=== PATIENT | male | born 1990 | race African-American/Black ===

== ENCOUNTER 2017-06-22 11:56 | Emergency (ER) | payer MEDICARE, MEDICAID ==
[~2017-06-22] VITALS: Ht 167.6 cm; Wt 66.0 kg
[2017-06-22 12:45] VITALS: BP 120/66
[2017-06-22 16:04] LABS: BASOPHILS % 0.9 % (0.0-2.0); EOSINOPHILS % 3.2 % (0.0-5.0); HEMATOCRIT. 40.9 % (42.0-52.0); HEMOGLOBIN. 14.3 g/dL (14.0-18.0); LYMPHOCYTES % 31.7 % (20.0-50.0); MEAN CORPUSCULAR HEMOGLOBIN 31.5 pg (28.0-32.0); MEAN CORPUSCULAR VOLUME 90.4 fL (80.0-94.0); MEAN PLATELET VOLUME 7.5 fl (7.4-10.4); MONOCYTES % 6.4 % (2.0-8.0); NEUTROPHILS % 57.8 % (40.0-76.0); PLATELET 338 x1000/uL (130-400); RED BLOOD CELL COUNT 4.52 mill/uL (4.7-6.1); RED CELL DISTRIBUTION WIDTH 13.2 % (11.6-14.6)
== END 2017-06-22 17:04 | disposition home or self-care (01) ==
LOC: ER 13:09
DX: K64.8 Other hemorrhoids (principal); Z88.6 Allergy status to analgesic agent
CPT/HCPCS: 36415; 85025; 99283

== ENCOUNTER 2023-04-11 10:32 | Emergency (ER) | payer MEDICAID ==
[~2023-04-11] VITALS: Ht 172.7 cm; Wt 68.0 kg
[2023-04-11 10:42] VITALS: BP 120/74; PULSE 93; RESP 18; TEMP 97.9; O2SAT 98
[2023-04-11] MEDS ORDERED: LIDOCAINE HCL/PF 1% 10 MG/ML 5ML VIAL INFIL ONE (11:30)
[2023-04-11] MEDS ORDERED: CEFTRIAXONE SODIUM 500 MG/VIAL IM ONE (11:30)
[2023-04-11 11:54] LABS: CLARITY URINE CLEAR (CLEAR); COLOR URINE YELLOW (YELLOW); GLUCOSE URINE NEGATIVE (NEGATIVE); KETONES URINE NEGATIVE (NEGATIVE); LEUKOCYTE ESTERASE URINE 2+ (NEGATIVE); NITRITE URINE NEGATIVE (NEGATIVE); OCCULT BLOOD URINE NEGATIVE (NEGATIVE); PROTEIN URINE NEGATIVE (NEGATIVE); SPECIFIC GRAVITY URINE 1.022 (1.005-1.030)
[2023-04-11] MEDS ORDERED: DOXY100T2 MT (12:05)
[2023-04-11 12:07] LABS: MUCUS URINE 2+ /lpf (NONE/TRACE); SQUAMOUS EPITHELIAL CELL URINE RARE /lpf (RARE/1+)
[2023-04-11 12:08] LABS: WBC URINE TNTC /hpf (0-2)
[2023-04-11 12:09] LABS: RBC URINE NONE SEEN /hpf (0-2)
[2023-04-11 12:10] LABS: BACTERIA URINE 1+
[2023-04-14 04:11] LABS: CHLAMYDIA TRACHOMATIS NAA Positive (Negative); NEISSERIA GONORRHOEAE NAA Negative (Negative)
== END 2023-04-11 12:44 | disposition home or self-care (01) ==
LOC: ER 10:32
DX: R30.0 Dysuria (principal); Z88.6 Allergy status to analgesic agent
CPT/HCPCS: 99283; 87491; 87591; 81003; 87086; 96372; J0696; J3490

== ENCOUNTER 2023-05-23 08:32 | Emergency (ER) | payer OTHER ==
[~2023-05-23] VITALS: Ht 162.6 cm; Wt 59.0 kg
[~2023-05-23 08:32] MED LIST: DOXY100T2 MT
[2023-05-23 08:35] VITALS: O2SAT 99
[2023-05-23] MEDS ORDERED: DOXYCYCLINE HYCLATE 100MG CAPSULE PO ONE (08:45)
[2023-05-23] MEDS ORDERED: CEFTRIAXONE SODIUM 500 MG/VIAL IM ONE (08:45)
[2023-05-23 09:25] LABS: CLARITY URINE CLEAR (CLEAR); COLOR URINE YELLOW (YELLOW); GLUCOSE URINE NEGATIVE (NEGATIVE); KETONES URINE NEGATIVE (NEGATIVE); LEUKOCYTE ESTERASE URINE NEGATIVE (NEGATIVE); NITRITE URINE NEGATIVE (NEGATIVE); OCCULT BLOOD URINE NEGATIVE (NEGATIVE); PH URINE 6.5 (4.5-8.0); PROTEIN URINE NEGATIVE (NEGATIVE); SPECIFIC GRAVITY URINE 1.024 (1.005-1.030)
[2023-05-23] MEDS ORDERED: DOXY100T2 MT (09:27)
[2023-05-23 09:34] VITALS: BP 112/80; PULSE 80; RESP 18; TEMP 98.7
[2023-05-25 04:11] LABS: CHLAMYDIA TRACHOMATIS NAA Positive (Negative); NEISSERIA GONORRHOEAE NAA Negative (Negative)
== END 2023-05-23 09:35 | disposition home or self-care (01) ==
LOC: ER 08:32
DX: R30.0 Dysuria (principal); R36.9 Urethral discharge, unspecified; M19.90 Unspecified osteoarthritis, unspecified site; Z88.6 Allergy status to analgesic agent
CPT/HCPCS: 99283; 87491; 87591; 81003; 96372; J0696

== ENCOUNTER 2023-07-27 09:03 | Emergency (ER) | payer OTHER ==
[~2023-07-27] VITALS: Ht 172.7 cm; Wt 64.0 kg
[2023-07-27 09:12] VITALS: O2SAT 97
[2023-07-27] MEDS ORDERED: DOXY100C5 MT (09:29)
[2023-07-27] MEDS: DOXYCYCLINE HYCLATE 100MG CAPSULE PO ONE (09:30)
[2023-07-27] MEDS: CEFTRIAXONE SODIUM 500MG VIAL IM ONE (09:30)
[2023-07-27 09:37] LABS: CLARITY URINE CLEAR (CLEAR); COLOR URINE YELLOW (YELLOW); GLUCOSE URINE NEGATIVE (NEGATIVE); KETONES URINE NEGATIVE (NEGATIVE); LEUKOCYTE ESTERASE URINE TRACE (NEGATIVE); NITRITE URINE NEGATIVE (NEGATIVE); OCCULT BLOOD URINE NEGATIVE (NEGATIVE); PH URINE 8.5 (4.5-8.0); PROTEIN URINE NEGATIVE (NEGATIVE); SPECIFIC GRAVITY URINE 1.022 (1.005-1.030)
[2023-07-27 10:00] LABS: MUCUS URINE TRACE /lpf (NONE/TRACE); SQUAMOUS EPITHELIAL CELL URINE NONE SEEN /lpf (RARE/1+)
[2023-07-27 10:03] LABS: BACTERIA URINE TRACE
[2023-07-27 10:04] LABS: RBC URINE 0-2 /hpf (0-2)
[2023-07-27 11:02] VITALS: BP 129/76; PULSE 73; RESP 18; TEMP 98.2
[2023-07-29 04:09] LABS: CHLAMYDIA TRACHOMATIS NAA Negative (Negative); NEISSERIA GONORRHOEAE NAA Negative (Negative)
[2023-07-31 06:10] LABS: LIDOCAINE None Detected ug/mL (1.5-5.0)
== END 2023-07-27 11:09 | disposition home or self-care (01) ==
LOC: ER 09:03
DX: N34.2 Other urethritis (principal); Z20.2 Contact with and (suspected) exposure to infections with a predominantly sexual mode of transmission; Z98.890 Other specified postprocedural states
CPT/HCPCS: 87491; 87591; 81003; 87086; 96372; 99283; 80176; J0696; Z7610

== ENCOUNTER 2023-08-18 01:15 | Emergency (ER) | payer OTHER ==
[~2023-08-18 01:15] MED LIST changes: +DOXY100C5 MT
[2023-08-18 01:20] VITALS: PULSE 88
[2023-08-18] MEDS ORDERED: DOXY100T2 MT (10:29)
== END 2023-08-18 01:37 | disposition left against medical advice (07) ==
LOC: ER 01:15
DX: R36.9 Urethral discharge, unspecified (principal); Z53.21 Procedure and treatment not carried out due to patient leaving prior to being seen by health care provider

== ENCOUNTER 2023-08-18 09:02 | Emergency (ER) | payer OTHER ==
[~2023-08-18] VITALS: Ht 165.1 cm; Wt 70.3 kg
[2023-08-18 09:08] VITALS: BP 118/88; PULSE 86; RESP 16; TEMP 98; O2SAT 96
[2023-08-18] MEDS ORDERED: DOXY100T2 MT (10:29)
[2023-08-18] MEDS: CEFTRIAXONE SODIUM 500MG VIAL IM ONE (10:44)
[2023-08-18] MEDS: LIDOCAINE HCL/PF 1% 10 MG/ML 5ML VIAL INFIL ONE (10:44)
[2023-08-18 11:02] LABS: CLARITY URINE CLEAR (CLEAR); COLOR URINE DARK YELLOW (YELLOW); GLUCOSE URINE NEGATIVE (NEGATIVE); KETONES URINE TRACE (NEGATIVE); LEUKOCYTE ESTERASE URINE NEGATIVE (NEGATIVE); NITRITE URINE NEGATIVE (NEGATIVE); OCCULT BLOOD URINE NEGATIVE (NEGATIVE); PH URINE 6.5 (4.5-8.0); PROTEIN URINE NEGATIVE (NEGATIVE); SPECIFIC GRAVITY URINE 1.031 (1.005-1.030)
[2023-08-20 05:12] LABS: CHLAMYDIA TRACHOMATIS NAA Negative (Negative); NEISSERIA GONORRHOEAE NAA Negative (Negative)
== END 2023-08-18 11:20 | disposition home or self-care (01) ==
LOC: ER 09:02
DX: A54.01 Gonococcal cystitis and urethritis, unspecified (principal); Z98.890 Other specified postprocedural states
CPT/HCPCS: 99283; 87491; 87591; 81003; 96372; J0696; J3490

== ENCOUNTER 2023-08-29 19:08 | Emergency (ER) | payer OTHER ==
[~2023-08-29] VITALS: Ht 165.1 cm; Wt 63.6 kg
[2023-08-29 19:12] VITALS: PULSE 115
[2023-08-29 19:16] VITALS: BP 122/65; RESP 18; TEMP 98; O2SAT 98
[2023-08-29] MEDS ORDERED: CEFTRIAXONE SODIUM 500MG VIAL IM ONE (19:30)
[2023-08-29] MEDS: CEFTRIAXONE SODIUM 500MG VIAL IM NR (19:30)
[2023-08-29] MEDS ORDERED: LIDOCAINE HCL/PF 1% 10 MG/ML 5ML VIAL INFIL ONE (19:30)
[2023-08-29] MEDS ORDERED: LIDOCAINE HCL/PF 1% 10 MG/ML 5ML VIAL INFIL NR (19:30)
[2023-08-29] MEDS ORDERED: DOXY100C5 MT (21:19)
== END 2023-08-29 21:26 | disposition home or self-care (01) ==
LOC: ER 19:08
DX: Z20.2 Contact with and (suspected) exposure to infections with a predominantly sexual mode of transmission (principal)
CPT/HCPCS: 99283; 96372; J0696; J3490

== ENCOUNTER 2023-10-28 20:42 | Emergency (ER) | payer OTHER ==
[~2023-10-28] VITALS: Ht 167.6 cm; Wt 75.0 kg
[2023-10-28 21:17] VITALS: BP 113/68; PULSE 88; RESP 16; TEMP 97.8; O2SAT 98
[2023-10-28 21:52] LABS: CLARITY URINE CLEAR (CLEAR); COLOR URINE DARK YELLOW (YELLOW); GLUCOSE URINE NEGATIVE (NEGATIVE); KETONES URINE TRACE (NEGATIVE); LEUKOCYTE ESTERASE URINE 1+ (NEGATIVE); NITRITE URINE NEGATIVE (NEGATIVE); OCCULT BLOOD URINE NEGATIVE (NEGATIVE); PH URINE 6.5 (4.5-8.0); PROTEIN URINE TRACE (NEGATIVE); SPECIFIC GRAVITY URINE 1.034 (1.005-1.030)
[2023-10-28 22:05] LABS: BACTERIA URINE 1+; SQUAMOUS EPITHELIAL CELL URINE RARE /lpf (RARE/1+)
[2023-10-28 22:11] LABS: RBC URINE 0-2 /hpf (0-2)
[2023-10-28] MEDS ORDERED: DOXY100C5 MT (23:01)
[2023-10-28] MEDS: CEFTRIAXONE SODIUM 500MG VIAL IM ONE (23:15)
[2023-10-28] MEDS: LIDOCAINE HCL/PF 1% 10 MG/ML 5ML VIAL INFIL ONE (23:45)
== END 2023-10-29 00:27 | disposition home or self-care (01) ==
LOC: ER 20:42
DX: A54.9 Gonococcal infection, unspecified (principal); N34.2 Other urethritis
CPT/HCPCS: 99283; 87491; 87591; 81003; 96372; J0696

== ENCOUNTER 2024-01-28 02:17 | Emergency (ER) | payer OTHER ==
[~2024-01-28] VITALS: Ht 170.2 cm; Wt 67.1 kg
[2024-01-28 02:33] VITALS: O2SAT 98
[2024-01-28 03:15] VITALS: BP 106/68; PULSE 77; RESP 16; TEMP 98.3; O2SAT 97
[2024-01-28] MEDS ORDERED: DOXY100C5 MT (03:51)
[2024-01-28] MEDS ORDERED: CEFTRIAXONE SODIUM 500MG VIAL IM ONE (04:00)
[2024-01-28] MEDS ORDERED: DOXYCYCLINE HYCLATE 100MG CAPSULE PO ONE (04:00)
[2024-01-28 04:11] LABS: CLARITY URINE CLEAR (CLEAR); COLOR URINE YELLOW (YELLOW); GLUCOSE URINE NEGATIVE (NEGATIVE); KETONES URINE TRACE (NEGATIVE); LEUKOCYTE ESTERASE URINE TRACE (NEGATIVE); NITRITE URINE NEGATIVE (NEGATIVE); OCCULT BLOOD URINE NEGATIVE (NEGATIVE); PROTEIN URINE TRACE (NEGATIVE); SPECIFIC GRAVITY URINE 1.031 (1.005-1.030)
[2024-01-28 07:41] LABS: RBC URINE 0-2 /hpf (0-2)
[2024-01-28 07:42] LABS: BACTERIA URINE NONE SEEN; SQUAMOUS EPITHELIAL CELL URINE NONE SEEN /lpf (RARE/1+)
== END 2024-01-28 04:20 | disposition home or self-care (01) ==
LOC: ER 02:17
DX: R36.9 Urethral discharge, unspecified (principal); Z11.3 Encounter for screening for infections with a predominantly sexual mode of transmission; Z79.899 Other long term (current) drug therapy
CPT/HCPCS: 99283; 81003; 87086; 87591; J0696

== ENCOUNTER 2024-02-09 09:00 | Emergency (ER) | payer OTHER ==
[~2024-02-09] VITALS: Ht 167.6 cm; Wt 75.0 kg
[2024-02-09 09:18] VITALS: O2SAT 99
[2024-02-09] MEDS ORDERED: METH-653 MT (09:59)
[2024-02-09] MEDS ORDERED: IBUP-2029 MT (09:59)
[2024-02-09 10:05] VITALS: TEMP 36.55848; O2SAT 98
[2024-02-09 10:08] VITALS: BP 129/94; PULSE 61; RESP 16
[2024-02-09] MEDS: KETOROLAC 30MG/ML VIAL IM ONE (10:08)
[2024-02-09] MEDS: METHOCARBAMOL 500MG TABLET PO ONE (10:08)
== END 2024-02-09 10:14 | disposition home or self-care (01) ==
LOC: ER 09:00
DX: S33.5XXA Sprain of ligaments of lumbar spine, initial encounter (principal); Z79.899 Other long term (current) drug therapy; X58.XXXA Exposure to other specified factors, initial encounter; Y93.89 Activity, other specified; Y92.89 Other specified places as the place of occurrence of the external cause; Y99.8 Other external cause status
CPT/HCPCS: 99283; 96372; J1885

== ENCOUNTER 2025-04-22 07:52 | Emergency (ER) | payer OTHER ==
[~2025-04-22] VITALS: Ht 172.7 cm; Wt 66.0 kg
[~2025-04-22 07:52] MED LIST changes: +IBUP-1455 MT; +METH-653 MT
[2025-04-22 07:53] VITALS: O2SAT 100
[2025-04-22 07:57] VITALS: BP 122/72; PULSE 94; RESP 16; TEMP 36.8; O2SAT 100
[2025-04-22] MEDS: CEFTRIAXONE SODIUM 500MG VIAL IM ONE (08:15)
[2025-04-22] MEDS ORDERED: DOXY100C5 MT (08:32)
[2025-04-22] MEDS: DOXYCYCLINE HYCLATE 100MG CAPSULE PO ONE (09:20)
[2025-04-22 09:51] LABS: CLARITY URINE CLEAR (CLEAR); COLOR URINE YELLOW (YELLOW); GLUCOSE URINE NEGATIVE (NEGATIVE); KETONES URINE NEGATIVE (NEGATIVE); LEUKOCYTE ESTERASE URINE NEGATIVE (NEGATIVE); NITRITE URINE NEGATIVE (NEGATIVE); OCCULT BLOOD URINE NEGATIVE (NEGATIVE); PH URINE 7.0 (4.5-8.0); PROTEIN URINE NEGATIVE (NEGATIVE); SPECIFIC GRAVITY URINE 1.018 (1.005-1.030); UROBILINOGEN URINE 1.0 E.U./dL (0.2-1.0)
[2025-04-24 07:13] LABS: CHLAMYDIA TRACHOMATIS NAA Positive (Negative); NEISSERIA GONORRHOEAE NAA Negative (Negative)
== END 2025-04-22 09:22 | disposition home or self-care (01) ==
LOC: ER 07:52
DX: Z11.3 Encounter for screening for infections with a predominantly sexual mode of transmission (principal); M19.90 Unspecified osteoarthritis, unspecified site
CPT/HCPCS: 99283; 87491; 87591; 81003; 36415; 96372; J0696